=== PATIENT | female | born 1935 | race Two or more races ===

== ENCOUNTER 2016-09-05 17:58 | Emergency (ER) | payer MEDICARE, OTHER ==
[~2016-09-05] VITALS: Ht 157.5 cm; Wt 86.2 kg
[~2016-09-05 17:58] MED LIST: SYNTHROID25 MCG ORAL; UNOBMED
[2016-09-05] MEDS ORDERED: NEXIUM40 MG ORAL (18:12)
[2016-09-05] MEDS ORDERED: HUMIRA40 MG/0.8 SUBQ (18:12)
[2016-09-05] MEDS ORDERED: ASPIR 8181 MG ORAL (18:12)
[2016-09-05] MEDS ORDERED: BENICAR20 MG ORAL (18:12)
[2016-09-05] MEDS ORDERED: Norco 5mg/325mg tab ORAL ONE (19:15)
--- NOTE | 2016-09-05 19:37 | Emergency Room Report ---
History of Present Illness General Chief Complaint: Lower Extremity Injury Source: Patient Present Illness HPI 81-year-old female presents to the emergency department complaining of 8/10 in severity anterior right knee pain status post mechanical trip and fall earlier today. Patient states she landed right on top of her knee she denies twisting injury she denies hitting her head or loss of consciousness. Patient states she took Aleve without relief. 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 She denies instability . She states pain is exacerbated upon bending the knee or walking she denies pain while standing . Denies numbness tingling or loss of sensation or gross motor movements of the extremities, incontinence of bowel or bladder. Denies CP, Palpitations, LOC, AMS, dizziness, Changes in Vision, Sensation, paresthesias, or a sudden severe headache. Allergies: Coded Allergies: MORPHINE (Verified Allergy, Unknown, 09/05/16) Nursing Documentation-H Hx Hypertension: Yes Hx Cancer: No Hx Gastrointestinal Problems: No Hx Neurological Problems: No Review of Systems All Other Systems: negative except mentioned in HPI Physical Exam Vital Signs Date Time Temp Pulse Resp B/P Pulse Ox O2 Delivery O2 Flow Rate FiO2 09/05/16 18:04 98.2 67 18 131/80 95 Room Air Sp02 EP Interpretation: reviewed, normal General Appearance: no apparent distress, alert, GCS 15, non-toxic Head: normocephalic, atraumatic Eyes: bilateral eye PERRL, bilateral eye normal inspection ENT: hearing grossly normal, normal pharynx, no angioedema, normal voice Neck: full range of motion, supple/symm/no masses Respiratory: lungs clear, normal breath sounds, speaking full sentences Cardiovascular #1: regular rate, rhythm, no edema Musculoskeletal: back normal, normal range of motion - pain with ROM, swelling - right knee, other - no increased laxity noted, negative anterior drawer sign, tender - ttp to the anterior right knee, bruise noted Neurologic: alert, oriented x3, responsive, motor strength/tone normal, sensory intact, speech normal Psychiatric: judgement/insight normal, memory normal, mood/affect normal Skin: normal color, no rash, warm/dry, well hydrated Medical Decision Making PA Attestation Dr. martinez is my supervising Physician whom patient management has been discussed with. Diagnostic Impression: Primary Impression: Patella fracture Qualified Codes: S82.044A - Nondisplaced comminuted fracture of right patella , initial encounter for closed fracture ER Course 81-year-old female presents to the emergency department complaining of 8/10 in severity anterior right knee pain status post mechanical trip and fall earlier today. Patient states she landed right on top of her knee she denies twisting injury she denies hitting her head or loss of consciousness. Patient states she took Aleve without relief. 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 She denies instability . She states pain is exacerbated upon bending the knee or walking she denies pain while standing . Denies numbness tingling or loss of sensation or gross motor movements of the extremities, incontinence of bowel or bladder. Denies CP, Palpitations, LOC, AMS, dizziness, Changes in Vision, Sensation, paresthesias, or a sudden severe headache. Ddx considered but are not limited to Fracture, dislocation, contusion, Sprain/ Strain/Spasm Vital signs: are WNL, pt. is afebrile H&PE are most consistent with musculoskeletal injury will perform imaging to r/ o fractures/dislocations. ORDERS: - X-ray Right Knee 3 views - Positive for Patellar fx, negative for Dislocation, or significant soft tissue injury, per preliminary read in ED by Dr. Nam - interpretation is scribed by PA. ED INTERVENTIONS: - [place] PO - Knee immobilizer applied to the right knee by alignment technician. Pt. remains neurovascularly intact. - pt. provided with crutches. -Pt. is provided with a copy of her xrays. DISCHARGE: At this time pt. is stable for d/c to home. Will provide printed patient care instructions, and any necessary prescriptions. Care plan and follow up instructions have been discussed with the patient prior to discharge. Last Vital Signs Date Time Temp Pulse Resp B/P Pulse Ox O2 Delivery O2 Flow Rate FiO2 09/05/16 18:04 98.2 67 18 131/80 95 Room Air Disposition: HOME, SELF-CARE Condition: Stable Scripts Ibuprofen* (MOTRIN*) 600 Mg Tablet 600 MG ORAL THREE TIMES A DAY, #30 TAB 0 Refills Prov: Arielle Abdul P.ALionel 09/05/16 Hydrocodone Bit/Acetaminophen 5-325* (NORCO 5-325*) 1 Each Tablet 1 TAB ORAL Q6H Y for For Pain, #10 TAB 0 Refills Prov: Arielle Abdul 09/05/16 Referrals: NON PHYSICIAN (PCP) Patient Instructions: Patellar Fracture, Adult Additional Instructions: Take medications as directed. Follow up with a Primary Care Provider in 3-5 days, even if your symptoms have resolved. --Please review list of primary care clinics, if you do not already have a primary care provider Return sooner to ED if new symptoms occur, or current symptoms become worse. Do not drink alcohol, drive, or operate heavy machinery while taking [place] as this may cause drowsiness. - Please note that this Emergency Department Report was dictated using [employer] camera operator technology software, occasionally this can lead to erroneous entry secondary to interpretation by the dictation equipment. Arielle Abdul Sep 05, 2016 19:37
[2016-09-05] MEDS ORDERED: NORCO 5-325 TA1 EACH ORAL ×2 (19:46→20:05)
[2016-09-05] MEDS ORDERED: IBUPROFEN600 MG ORAL ×2 (19:46→20:05)
[2016-09-05 20:07] VITALS: BP 136/78
--- NOTE | 2016-09-06 16:16 | Diagnostic Imaging Report ---
Indication: PAIN Technique: 3 views of the right knee Comparison: None Findings:There is a comminuted nondisplaced fracture of the patella. There is a suprapatellar effusion. No femoral or tibial fracture demonstrated. Joint spaces are preserved. There are vascular calcifications. Impression:Positive for patellar fracture The electronic medical record indicates this was recognized by the emergency department physician
== END 2016-09-05 20:09 | disposition home or self-care (01) ==
LOC: EMR 18:45
DX: S82.044A Nondisplaced comminuted fracture of right patella, initial encounter for closed fracture (principal); Z88.6 Allergy status to analgesic agent; I10 Essential (primary) hypertension; W01.0XXA Fall on same level from slipping, tripping and stumbling without subsequent striking against object, initial encounter; Y92.9 Unspecified place or not applicable
CPT/HCPCS: 29530; 99284